=== PATIENT | male | born 1995 | race African-American/Black ===

== ENCOUNTER 2017-06-17 21:49 | Emergency (ER) | payer SELFPAY ==
[~2017-06-17] VITALS: Ht 198.1 cm; Wt 145.0 kg
[2017-06-18 00:13] LABS: POINT-OF-CARE METER ID UU13113800
[2017-06-18 01:43] VITALS: BP 152/89
== END 2017-06-18 01:47 | disposition home or self-care (01) ==
LOC: EME 21:49
DX: B34.9 Viral infection, unspecified (principal); E86.0 Dehydration; F17.200 Nicotine dependence, unspecified, uncomplicated
CPT/HCPCS: 99281; 99285; J1200; J1885; J2765; J7030